=== PATIENT | female | born 1965 | race Caucasian/White ===

== ENCOUNTER 2019-05-25 14:52 | Emergency (ER) | payer BC, OTHER ==
[~2019-05-25] VITALS: Ht 168.9 cm; Wt 63.5 kg
[2019-05-25 15:11] VITALS: BP 168/90
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
--- NOTE | 2019-05-25 15:30 | NUR ---
DC EDUCATION PROVIDED, PT DEMONSTRATES UNDERSTANDING. PT AMBUALTED STEADILY TO DC WITH RN.
== END 2019-05-25 15:42 ==
LOC: ED 15:35
DX: S46.911A Strain of unspecified muscle, fascia and tendon at shoulder and upper arm level, right arm, initial encounter (principal); V49.59XA Passenger injured in collision with other motor vehicles in traffic accident, initial encounter; Y93.89 Activity, other specified; Y92.89 Other specified places as the place of occurrence of the external cause; Y99.8 Other external cause status
CPT/HCPCS: 99283